=== PATIENT | female | born 1985 | race Caucasian/White ===

== ENCOUNTER → 2016-12-20 | Outpatient (CLI) | payer BC, OTHER ==
[2016-12-21 06:04] LABS: ESTIMATED AVERAGE GLUCOSE 143 mg/dl; HA1C FLAG Normal (Normal)
== END | disposition home or self-care (01) ==
LOC: C.LAB1850 16:52
PROVIDERS: ATTEND Nurse Practitioner Family
DX: E11.65 Type 2 diabetes mellitus with hyperglycemia (principal)

== ENCOUNTER → 2017-04-18 | Outpatient (CLI) | payer BC, OTHER ==
[2017-04-18 15:33] LABS: RATIO 7.7 mcg/mg (0-30.0)
[2017-04-19 06:54] LABS: ESTIMATED AVERAGE GLUCOSE 163 mg/dl; HA1C FLAG Normal (Normal)
== END | disposition home or self-care (01) ==
LOC: C.LAB1850 12:57
PROVIDERS: ATTEND Nurse Practitioner Family
DX: E11.65 Type 2 diabetes mellitus with hyperglycemia (principal)

== ENCOUNTER → 2017-09-08 | Outpatient (CLI) | payer BC, OTHER ==
[2017-09-08 13:38] LABS: HEMOGLOBIN A1C 7.1 % (4.5-5.6)
== END | disposition home or self-care (01) ==
LOC: C.LAB1850 11:40
PROVIDERS: ATTEND Obstetrics & Gynecology
DX: E28.2 Polycystic ovarian syndrome (principal)

== ENCOUNTER 2023-06-20 05:57 | Observation (INO) ==
--- NOTE | 2023-06-12 08:43 | Anesthesiology Consultation ---
Date of Service June 12, 2023 Assessment & Plan (1) Encounter for pre-operative examination: Plan - check BSG and urine test STAT am DOS. - Mounluannero: Patient instructed by PAT RN to stop 7 days prior to surgery. - Per senior financial analyst on 06/11/2023: No known infectious disease contacts, current infectious disease symptoms in past 10 days or COVID positive test result in the past 30 days. Chart Review Chart Review: Acceptable Risk for Surgery and Patient NOT seen in Pre Admission Testing History Surgery Operation Date: 06/20/23 07:30 Proposed Procedures p Robotic Assisted Hysterectomy, Removal of Fallopian Tubes and - Zelalem Garay MD s Mid Urethral Sling (Polypropylene Mesh) - Zelalem Garay MD Height/Weight Height: 5 ft 10 in Weight: 101.151 kg Allergies Allergy/AdvReac Type Severity Reaction Status Date / Time No Known Drug Allergies Allergy Verified 06/11/23 16:33 Medications Home Medications Medication Instructions Recorded Confirmed Last Taken empagliflozin 25 mg tablet 25 mg PO HS 06/11/23 06/11/23 Unknown (Jardiance) escitalopram oxalate 10 mg tablet 10 mg PO HS 06/11/23 06/11/23 Unknown tirzepatide 7.5 mg/0.5 mL 7.5 mg subcut WK 06/11/23 06/11/23 Unknown subcutaneous pen injector (Paulunchristal) Past Medical History Medical History IBS (irritable bowel syndrome) Diabetes mellitus, type 2 Bleeding of eye right eye--sees retinal specialist, gets shots for this--last shot 04/07/23 Anxiety Migraine History of pneumonia hx of--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, "never have any issues unless I get a bad cold, I havent had any issues in over 8 years now (2014)" Past Family History Family History Father Hypertension Mother Hypertension Other No family history of adverse response to anesthesia No family history of bleeding disorder Past Surgical History Surgical History History of hysteroscopy History of esophagogastroduodenoscopy (EGD) History of colonoscopy History of wisdom tooth extraction History of bronchoscopy biopsy--showed scarring from pneumonia History of left oophorectomy 2015 History of cholecystectomy 11/27/21 Social History Smoking Status: Never smoker Do You Dip or Chew Tobacco: No Hx Alcohol Use: No Hx Substance Use: No substance use type: does not use Testing Laboratory Results 06/10/2023 WBC: 7.6 H/H: 14/44 PLATELETS: 227 SODIUM: 140 POTASSIUM: 3.6 CHLORIDE: 104 CO2: 27 BUN: 15 CREATININE: 0.7 GLUCOSE: 127
--- NOTE | 2023-06-19 07:25 | History & Physical Report ---
Date of Service June 20, 2023 Assessment & Plan (1) GARRETT (stress urinary incontinence, female): (2) Fibroid uterus: Plan Impression: This is a 37 year old with: Stress incontinence (Primary) Urethral hypermobility Abnormal uterine bleeding Fibroids, submucosal 1. GARRETT: Options reviewed including Kegel exercises, incontinence ring pessary, or mid-urethral sling. I further reviewed the risks of surgery including infection, bleeding, injury, mesh exposure, pain, and urinary retention 2. Patient desires hysterectomy for her abnormal uterine bleeding and fibroid. She would like to have the sling surgery and hysterectomy performed together. Risks of infection, bleeding, injury, conversion to laparotomy, adhesion formation, pelvic pain were reviewed. All questions answered. Patient desires to proceed. Informed consent confirmed. Zelalem Garay MD Admission and Anticipated Discharge Date Admission Date: 06/20/2023 Anticipated date of discharge: 06/21/23 History of Present Illness Chief Complaint: Stress Urinary Incontinence Abnormal uterine bleeding Endometrial leiomyoma Primary Care Provider: Trip Mantilla M.D. Radha Franco is a 37 year old female P 3 with GARRETT, abnormal uterine bleeding, and fibroids Referred by Otoniel Elam MD. For the past 5-6 years, Radha Franco complains of worsening GARRETT with laughing, coughing, sneezing, jumping, and running. She denies urgency or urge incont inence. She also has abnormal uterine bleeding with endometrial fibroid on ultrasound. Urinary: Leakage: GARRETT Has leakage several times a week Wears pads: occasionally She denies a sense of incomplete bladder emptying. Prior/current treatment include: Kegel exercises UTI: denies Voiding detail: Daytime frequency: every 3-4 hours Urgency no Nocturia:1-2 times Hesitancy no Straining no Hematuria no Postvoid dribbling no Postvoid urgency no Manual reduction no Prolapse: She denies a palpable bulge. GI: Bowel habits: normal bowel movement She denies fecal incontinence. Prior/ current treatments include: none Allergies Allergy/AdvReac Type Severity Reaction Status Date / Time No Known Drug Allergies Allergy Verified 06/20/23 06:13 Home Medications Medication Instructions Recorded Confirmed Type empagliflozin 25 mg tablet 25 mg PO HS 06/11/23 06/20/23 History (Jardiance) escitalopram oxalate 10 mg tablet 10 mg PO HS 06/11/23 06/20/23 History tirzepatide 7.5 mg/0.5 mL 7.5 mg subcut WK 06/11/23 06/20/23 History subcutaneous pen injector (Florin) Patient History Medical History IBS (irritable bowel syndrome) Diabetes mellitus, type 2 Bleeding of eye right eye--sees retinal specialist, gets shots for this--last shot 04/07/23 Anxiety Migraine History of pneumonia hx of--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, "never have any issues unless I get a bad cold, I havent had any issues in over 8 years now (2014)" Surgical History History of hysteroscopy History of esophagogastroduodenoscopy (EGD) History of colonoscopy History of wisdom tooth extraction History of bronchoscopy biopsy--showed scarring from pneumonia History of left oophorectomy 2014 History of cholecystectomy 11/27/21 Family History Father Hypertension Mother Hypertension Other No family history of adverse response to anesthesia No family history of bleeding disorder Social History Smoking Status: Never smoker Second Hand Exposure: No; Do You Dip or Chew Tobacco: No; Tobacco Cessation Education Requested by Patient: No Hx Alcohol Use: No Hx Substance Use: No Preferred Language: Amharic Communication Ability: Effective Pharmaceutical Laboratory Technician Required: No Beliefs That Will Affect Care: None marital status: Current Living Situation: Spouse and Family current occupational status: employed current occupation: charter driver Other Information That Helps Us Care for You: No Feels Safe at Home: Yes Safety Concerns: Feels Safe At This Time Assistive Devices: None OB History Weight of largest baby: 6*5 Vaginal deliveries: 3 C/S: 0 SUPERINTENDENT JOB History history of Left oophorectomy for benign ovarian cyst. Abnormal uterine bleeding with endometrial fibroid. Review of Systems All systems reviewed & are unremarkable except as noted in HPI & below Physical Exam Constitutional: WD/WN, vitals as above Eyes: PERRL, conjunctivae normal, anicteric sclerae ENMT: external ear and nose normal, oropharynx normal Neck: trachea midline, no thyromegaly Respiratory: normal respiratory effort, lungs clear to auscultation Cardiovascular: RRR, no murmur, no edema Gastrointestinal (Abdomen): normal bowel sounds, soft, nontender, no hepatosplenomegaly Musculoskeletal: no cyanosis or clubbing, extremities motor strength 5/5 Skin: no rashes, warm and dry Neurologic: PERRL, EOMI, accommodation nl, no face palsy, no dysarthria Psychiatric: A+Ox3, euthymic affect Results & Data Laboratory Results Component Ref Range & Units 9 d ago BUN 6 - 20 mg/dL 15 Creatinine 0.5 - 1.0 mg/dL 0.7 Estimated Glomerular Filtration Rate >=60 mL/min >90 Comment: eGFR is calculated based on the CKD-EPI 2020 equation Sodium 135 - 146 mmol/L 140 Potassium 3.5 - 5.1 mmol/L 3.6 Chloride 98 - 107 mmol/L 104 CO2 22 - 32 mmol/L 27 Anion Gap 7 - 15 mmol/L 9 Glucose 70 - 120 mg/dL 127 High Calcium 8.4 - 10.2 mg/dL 9.3 Resulting Agency [facility] Specimen Collected: 06/10/23 11:53 Last Resulted: 06/10/23 17:54 CBC Order: [id number] Status: Final result Visible to patient: Yes (seen) Next appt: 06/20/2023 at 07:00 AM in Surgery (Zelalem Garay MD) Dx: Stress incontinence; Fibroids, submuc... 0 Result Notes Component Ref Range & Units 9 d ago WBC 4.00 - 10.80 K/uL 7.64 RBC 3.85 - 5.15 M/uL 5.35 HGB 12.0 - 15.3 g/dL 14.7 HCT 36.0 - 45.2 % 44.9 MCV 81.5 - 97.5 fL 83.9 MCH 27.0 - 34.0 pg 27.5 MCHC 32.0 - 36.0 g/dL 32.7 RDW 11.5 - 15.5 % 12.4 PLT 140 - 400 K/uL 227 MPV 6.6 - 11.1 fL 11.5 nRBCs <=0 /100 WBCs 0 Resulting Agency [facility] Specimen Collected: 06/10/23 11:53 Last Resulted: 06/10/23 19:33 Diagnostic Findings Details Reading Physician Reading Date Result Priority Chang Hollins MD [phone] 12/27/2022 Narrative & Impression EXAM US PELVIS TRANS-VAGINAL NON-OB - 12/27/2022 3:19 pm HISTORY pelvic pain TECHNIQUE Real-time transvaginal ultrasound of the pelvis was performed. COMPARISON 05/29/2022. FINDINGS The uterus measures 7.6 x 4.8 x 5.9 cm and is normal in size and echogenicity. There is a 1.3 cm submucosal leiomyoma (previously 1.2 cm). The endometrium appears unremarkable and measures 11 mm in thickness. The right ovary measures 5 x 3.6 x 3.3 cm and contains a 2.1 cm corpus luteum. The left ovary is surgically absent. There is no adnexal mass. There is no free fluid in the cul-de-sac. IMPRESSION IMPRESSION Uterine leiomyoma. Specimen Collected: 12/27/22 20:29 Last Resulted: 12/27/22 20:27
[2023-06-20] MEDS ORDERED: LR 15ML/HR IV SCH (06:00)
[2023-06-20] MEDS ORDERED: cefOXitin 2,000 MG in DEXTROSE 5 % MINI-B 50 ML IV SCH (06:00)
[2023-06-20] MEDS ORDERED: LIDOCAINE 2% 2 ML VIAL/AMP(20MG/ML) INFIL ONE ×2 (06:53)
[2023-06-20] MEDS ORDERED: MIDAZOLAM HCL 1 MG/ML 2ML VIAL ONE (06:53)
[2023-06-20] MEDS ORDERED: PROPOFOL IV EMULSION 10 MG/ML 20 ML VIAL IV ONE ×2 (06:53→09:22)
[2023-06-20] MEDS ORDERED: ROCURONIUM BROMIDE 10 MG/ML 5 ML VIAL IV ONE ×8 (06:53→07:58)
[2023-06-20] MEDS ORDERED: DEXAMETHASONE SOD INJ 4 MG/ML VIAL ONE (06:53)
[2023-06-20] MEDS ORDERED: ONDANSETRON INJ 2 MG/ML 2 ML VIAL ONE (06:53)
[2023-06-20] MEDS ORDERED: fentaNYL citrate PF 100 MCG/2 ML VIAL ONE ×2 (06:53→07:56)
[2023-06-20] MEDS ORDERED: NALOXONE HCL 0.4 MG/1 ML VIAL/CARP IV PRN (06:58)
[2023-06-20] MEDS ORDERED: PROMETHAZINE HCL 12.5 MG in SODIUM CHLORIDE 0.9% 50 ML IV PRN (06:58)
[2023-06-20] MEDS ORDERED: ATROPINE SULFATE 0.1 MG/ML 10ML SYR IV PRN (06:58)
[2023-06-20] MEDS ORDERED: LABETALOL HCL IV 5 MG/ML 20ML IV PRN (06:58)
[2023-06-20] MEDS ORDERED: ePHEDrine sulfate 50 MG/ML AMP IV PRN (06:58)
[2023-06-20] MEDS ORDERED: FLUMAZENIL 0.1 MG/1 ML 10 ML VIAL IV PRN (06:58)
[2023-06-20] MEDS ORDERED: ONDANSETRON INJ 2 MG/ML 2 ML VIAL IV PRN ×2 (06:58→09:44)
--- NOTE | 2023-06-20 07:16 | History & Physical Bridge Note ---
Date of Service June 20, 2023 History & Physical Bridge Note I have examined the patient, reviewed the History & Physical and in the interval since the performance of the History & Physical I have noted the following changes of clinical significance: no changes noted
[2023-06-20] MEDS ORDERED: BUPIVACAINE 0.5 % 5 MG/1 ML MPF 30ML VIAL ONE (07:32)
[2023-06-20] MEDS ORDERED: PREMARIN VAG CRM 14 APPLN/30 GM TUBE ONE (07:32)
[2023-06-20] MEDS ORDERED: LIDOCAINE 1%/EPINEPHRINE 1:100,000 20 ML VIAL ONE ×2 (07:45→07:55)
[2023-06-20] MEDS ORDERED: SUGAMMADEX SODIUM 200 MG/2 ML VIAL IV ONE (08:03)
[2023-06-20] MEDS ORDERED: KETOROLAC 30 MG/ML VIAL ONE (09:04)
[2023-06-20] MEDS ORDERED: METOPROLOL TARTRATE 1 MG/ML VIAL IV ONE (09:39)
[2023-06-20] MEDS ORDERED: oxyCODONE/ACETAMINOPHEN 5mg/325mg TAB PO PRN (09:44)
[2023-06-20] MEDS ORDERED: GLUCOSE 40% GEL 15 GM TUBE PO PRN (09:57)
[2023-06-20] MEDS ORDERED: GLUCOSE 10 TAB/TUBE PO PRN (09:57)
[2023-06-20] MEDS ORDERED: DEXTROSE 5% 1,000 ML IV PRN (09:57)
[2023-06-20] MEDS ORDERED: DEXTROSE 50% 50 ML SYRINGE IV PRN (09:57)
[2023-06-20] MEDS ORDERED: SODIUM CHLORIDE 0.9% 1,000 ML IV PRN (09:57)
[2023-06-20] MEDS ORDERED: CARBOHYDRATES FOR HYPOGLYCEMIA PO PRN (09:57)
[2023-06-20] MEDS ORDERED: GLUCAGON FOR INJ 1 MG VIAL SQ PRN (09:57)
--- NOTE | 2023-06-20 10:00 | Operative Report ---
Post Operative Report Pre & Post Diagnosis Operation Date: 06/20/23 07:30 Pre-Op Diagnosis: Stress Incontinence, Uterine Leiomyoma Post-Op Diagnosis: Stress Incontinence, Uterine Leiomyoma, Endometriosis I identified the patient and participated in the time-out.: Yes Procedure Operation Date: 06/20/23 07:30 Actual Procedures p Robotic Assisted Laparoscopic Hysterectomy, Salpingectomy, Cystoscopy, Right ovarian cystectomy(Not Applicable) - Zelalem Garay MD s Mid Urethral Sling (Polypropylene Mesh)(Not Applicable) - Zelalem Garay MD Surgeon Zelalem Garay MD Wire Border Assembler Shawnee Meehan PA-C Estimated Blood Loss 60 Findings Consistent with Post-Op Diagnosis Normal appearring cervix and uterus. Left ovary was surgically absent. Right ovary with simple cyst. Endometriosis implants along the bilateral round ligaments, and posterior cervix. Normal cystoscopy with excellent efflux of ureters bilaterally. Fluids crystalloid Specimens cervix, uterus, right fallopian tube, right ovarian cyst Drains Cartwright Anesthesia Type General Complications none Disposition Accompanied Patient To Recovery: Yes Disposition: Recovery Room Indications abnormal uterine bleeding, fibroid on ultrasound, stress urinary incontinence Description of Procedure After Radha Franco was correctly identified to person and procedure in the preopertive holding room, the indications, risks, benefits of surgery were discussed in detail. All questions answered. Informed consent was obtained. the patient was taken to the operating room and given general anesthesia per anesthesia service. Patient was positioned in wali stirrups and was prepped and draped in the usual sterile fashion. Time out was performed. A Cartwright catheter was inserted into the bladder. A weight speculum was placed in the vagina, the cervix was serially dilated. A medium V-care uterine manipulator was applied. The speculum was removed. Attention was then focosed to the abdomen. An 8 mm umbilical incision was made. The robotic 8 mm trocar with Optiview was advanced through the incision into the abdomen under direct visualization. The abdomen was insufflated. Additional 8 mm trocars was placed on the left and right mid abdomen under direct visualization. The patient was placed in Trendelenburg position and the robot was docked. Inspection revealed absent left ovary and tube. Normal cervix and uterus, right ovary with simple cyst. Dark endometriosis lesions were noted along the round ligament. The right tube was then dissected free from the right ovary. The right utero-ovarian pedicle was vessel sealed and transected. The right round ligament was vessel sealed and transected. The bladder flap was developed. The right uterine vessels were dissected and vessel sealed at the level of the cervical cup and transected. On the left, the left round ligament was vessel sealed and transected. The bladder flap was completely developed. The left uterine vessels were dissected and vessel sealed at the level of the cervical cup. The colpotomy incision was made following the contours of the cervical cup. The cervix, uterus, and right fallopian tube was delivered out the vagina. The vaginal cuff was closed with 0 V lock suture in running fashion. The right ovarian cyst was dissected, excised, and sent to pathology. The pelvis was irrigated and found to have excellent hemostasis. The robot was undocked, the trocars were removed and the skin incisions were closed with 4-0 Moncryl and closed with surgical glue. Attention was then focused vaginally. The vaginal mucosa over the mid-urethra was grasped with allis clamps and infiltrated with 1% lidocaine with epinephrine. A 1 cm vertical incision was made. The vaginal mucosa was sharply dissected toward the pubic rami bilaterally. The Solyx singe incision sling was implanted by inserting the ends of the sling into the obturator internus muscles bilaterally with the sling just gently resting along the posterior urethra without tension. Cystoscopy was performed with 250 ml of irrigation fluid. Systematic inspection of the bladder dome, trigone, and urethra revealed no lesions. Excellent efflux of ureters were demonstrated bilaterally. The bladder was allowed to drain and the Cartwright catheter was inserted. The vaginal mucosa was closed with 2-0 Vicryl in a running fashion. The vagina was irrigated and found to have excellent hemostasis. The vagina was packed with estrogen cream and vaginal packing. All sponge lap and needle counts were correct. The patient was awakened, extubated, and sent to the recovery room in good condition. I attest to the content of the Intraoperative Record and any orders documented therein. Any exceptions are noted below. No qualified resident was available. Advanced provider, Shawnee Meehan PA-C, was necessary for robotic docking, exchange of instruments, positioning, draping, retraction, irrigation, and wound closure.
[2023-06-20] MEDS: fentaNYL citrate PF 100 MCG/2 ML VIAL IV PRN ×5 (10:13→10:29)
[2023-06-20] MEDS: HYDROmorphone INJ 1 MG/ML SYRINGE IV PRN ×4 (10:33→10:48)
--- NOTE | 2023-06-20 12:12 | Anesthesiology Progress Note ---
Date of Service June 20, 2023 Anesthesia Post Procedure Vital Signs Vital Signs: Temp Pulse Pulse Resp BP Pulse Ox O2 Del Method 06/20/23 12:00 78 16 111/66 95 Room Air 06/20/23 11:45 74 18 128/67 95 Room Air 06/20/23 11:30 81 16 122/65 96 Room Air 06/20/23 11:15 75 16 119/70 95 Room Air 06/20/23 11:00 75 16 124/68 95 Room Air 06/20/23 10:55 36.4 C L 76 15 125/72 96 Room Air 06/20/23 10:45 77 14 136/76 95 Room Air 06/20/23 10:35 76 14 139/80 97 Room Air 06/20/23 10:25 73 16 141/89 H 97 Room Air 06/20/23 10:15 80 18 138/80 100 Room Air 06/20/23 10:05 84 16 142/82 H 100 Room Air 06/20/23 09:55 91 H 18 100/74 100 Oxymask 06/20/23 09:46 36.1 C L 93 H 14 130/82 96 Oxymask 06/20/23 06:14 Room Air 06/20/23 06:14 36.7 C 67 18 123/81 97 Room Air O2 Flow Rate 06/20/23 12:00 06/20/23 11:45 06/20/23 11:30 06/20/23 11:15 06/20/23 11:00 06/20/23 10:55 06/20/23 10:45 06/20/23 10:35 06/20/23 10:25 06/20/23 10:15 06/20/23 10:05 06/20/23 09:55 4 06/20/23 09:46 6 06/20/23 06:14 06/20/23 06:14 Pain Intensity Abdomen: Pain Intensity: 6 Transfer of Care Handoff Completed per policy Notes Mental Status: alert / awake / arousable Patient Amnestic to Procedure: Yes Nausea / Vomiting: adequately controlled Pain: adequately controlled Airway Patency, RR, SpO2: stable & adequate BP & HR: stable & adequate Hydration State: stable & adequate Anesthetic Complications: no major complications apparent
[2023-06-20] MEDS: INSULIN ASPART PER UNIT CHARGE SC SCH ×3 (12:14→21:53)
[2023-06-20] MEDS: oxyCODONE/ACETAMINOPHEN 5mg/325mg TAB PO PRN ×3 (13:50→23:46)
[2023-06-20] MEDS: IBUPROFEN 600 MG TAB PO PRN ×2 (15:19→23:46)
[2023-06-21 07:44] LABS: Basophils # (auto) 0.04 K/uL (0.00-0.20); Basophils % (auto) 0.4 %; Eosinophils # (auto) 0.26 K/uL (0.00-0.50); Eosinophils % (auto) 2.6 %; Hematocrit (blood only) 39.8 % (37.0-47.0); Hemoglobin 12.7 g/dl (12.0-16.0); Immature Granulocytes # (auto) 0.03 K/uL (0.01-0.20); Immature Granulocytes % (auto) 0.3 %; Lymphocytes # (auto) 1.84 K/uL (1.20-3.40); Lymphocytes % (auto) 18.2 %; Mean Corpuscular Hemoglobin 27.3 pg (25.0-34.0); Mean Corpuscular Hgb Conc 31.9 g/dL (32.0-36.0); Mean Corpuscular Volume 85.6 fL (80.0-100.0); Mean Platelet Volume 10.5 fL (9.4-12.4); Monocytes # (auto) 0.67 K/uL (0.11-0.59); Monocytes % (auto) 6.6 %; Neutrophils # (auto) 7.26 K/uL (1.40-6.50); Neutrophils % (auto) 71.9 %; Platelet Count 174 K/uL (130-400); RDW Coefficient of Variation 12.8 % (11.5-14.5); RDW Standard Deviation 39.6 fL (36.4-46.3); Red Blood Count 4.65 M/uL (4.20-5.40)
[2023-06-21] MEDS: IBUPROFEN 600 MG TAB PO PRN (07:52)
[2023-06-21] MEDS ORDERED: ESCITALOPRAM OXALATE 10 MG TAB PO SCH (08:00)
[2023-06-21] MEDS ORDERED: EMPAGLIFLOZIN 25 MG TAB PO SCH (08:00)
[2023-06-21 08:07] LABS: BUN Creatinine Ratio 16.9 (10-20); Creatinine Clr Calc Pharmacy 114.2 ml/min; Est GFR (African American) 97.3 ml/min; Potassium 3.6 mmol/L (3.5-5.1)
== END 2023-06-21 09:30 | disposition home or self-care (01) | DRG 743 ==
LOC: ASU 05:57 → INTOOBSV 09:44 → PACUINP 09:44 → 4E1 15:09